=== PATIENT | female | born 1960 | race Caucasian/White ===

== ENCOUNTER 2024-08-25 10:00 | Day surgery (SDC) | payer BC ==
[2024-08-21 12:14] LABS: Basophils # (auto) 0.1 10 ^3/uL (0-0.2); Basophils % (auto) 0.8 % (0.0-2.0); Eosinophils # (auto) 0.2 10 ^3/uL (0-0.8); Eosinophils % (auto) 1.8 % (0.0-7.0); Hematocrit 47.4 % (36.0-46.0); Hemoglobin 15.5 g/dL (12.2-16.2); Lymphocytes # (auto) 1.6 10 ^3/uL (0.4-5.4); Lymphocytes % (auto) 15.7 % (10.0-50.0); Mean Corpuscular Hemoglobin 27.8 pg (28.0-32.0); Mean Corpuscular Hgb Conc. 32.6 g/dL (32.0-36.0); Mean Corpuscular Volume 85.3 fL (80.0-100.0); Monocytes # (auto) 0.9 10 ^3/uL (0-1.3); Monocytes % (auto) 8.8 % (0.0-12.0); Neutrophils # (auto) 7.2 10 ^3/uL (1.6-8.6); Neutrophils % (auto) 72.9 % (37.0-80.0); Platelet Count (auto) 293 10^3/uL (140-450); Red Blood Cells 5.56 10^6/uL (4.0-5.20); White Blood Cell 9.9 10^3/uL (4.4-10.8)
[2024-08-21 12:44] LABS: INR 0.95 (0.9-1.15); Partial Thromboplastin Time 28.2 SEC (24.5-34.5); Prothrombin Time 10.1 sec (9.3-11.8)
[2024-08-21 12:49] LABS: Alanine Aminotransferase 14 U/L (7-40); Alkaline Phosphatase 70 U/L (46-116); Anion Gap 8 (5-15); BUN/Creatinine Ratio 23.5 (10.0-20.0); Blood Urea Nitrogen 19 mg/dL (9-23); Carbon Dioxide 27 mmol/L (20-31); Chloride 105 mmol/L (98-107); Potassium 3.9 mmol/L (3.5-5.1); Sodium 140 mmol/L (136-145); Total Protein 7.3 g/dL (5.7-8.2)
[2024-08-21 12:50] LABS: Albumin 4.8 g/dL (3.2-4.8); Aspartate Aminotransferase 12 U/L (13-40); Bilirubin, Total 0.4 mg/dL (0.2-1.0); Calcium 10.9 mg/dL (8.7-10.4); Glucose 60 mg/dL (74-106)
[~2024-08-25] VITALS: Ht 170.2 cm; Wt 54.4 kg
[~2024-08-25 10:00] MED LIST: ANAS1TAB7 PO; CALC667C PO; CHOL400T19 PO
[2024-08-25] MEDS ORDERED: KETAMINE 50mg/ML 1ml syringe ONE (11:12)
[2024-08-25] MEDS ORDERED: SODIUM CHLORIDE LOCK 10 ML ONE (11:12)
[2024-08-25] MEDS ORDERED: LIDOCAINE 1% INJ PF 5ML AMP ONE (11:12)
[2024-08-25] MEDS ORDERED: fentaNYL CITRATE 100 MCG/2 ML VL ONE (11:12)
[2024-08-25] MEDS ORDERED: PROPOFOL 10 MG/ML 20 ML IV ONE (11:12)
[2024-08-25] MEDS ORDERED: MIDAZOLAM HCL 2MG/2ML 2ml VIAL (1mg/ml) ONE (11:12)
[2024-08-25] MEDS ORDERED: ONDANSETRON HCL 4 MG/2 ML VIAL ONE (11:12)
[2024-08-25 11:58] VITALS: PULSE 63; RESP 15; TEMP 99.2; O2SAT 100
--- NOTE | 2024-08-25 12:15 | DVHOP2 ---
Operative Report DATE OF OPERATION: 08/25/24 PROCEDURE: Colonoscopy with hot snare polypectomy. PREOPERATIVE INDICATION: The patient is a 64 -year-old female undergoing colonoscopy for colon cancer screening with Hemoccult-positive stools POSTOPERATIVE DIAGNOSES: 1. Patient had a 1-1.5 cm benign-appearing descending colon polyp that was seen and removed by hot snare polypectomy and the specimen was retrieved 2. Patient had a 2 mm benign-appearing cecal polyp that was seen and removed by cold biopsy forceps 3. There was a 2-3 mm benign-appearing ascending colon polyp that was seen and removed via cold biopsy forceps 4. There was a 2-3 mm benign-appearing splenic flexure polyp that was seen and removed via hot snare polypectomy 5. There was a 2 mm benign-appearing rectal polyp that was seen and removed via cold biopsy forceps 6. Trace internal hemorrhoids, mild sigmoid diverticular disease otherwise normal examination up to the cecum and terminal ileum PROCEDURE PERFORMED BY: Neema Zapata M.D. SCOPE: Olympus videocolonoscope. ASA CLASS: 3. PREOPERATIVE MEDICATIONS: Dr. Sina Yu PROCEDURE IN DETAIL: After obtaining an informed consent, the patient was placed on left lateral decubitus position. She was then sedated with the above medications. A rectal examination was performed that was normal. The colonoscope was then passed through the anus into the rectosigmoid and through the descending, transverse, and ascending colon up to the cecum with visualization of the appendiceal orifice, base of the cecum and the ileocecal valve. The colonoscope was then withdrawn. The distal 5 cm of the terminal ileum were nor mal In the base of the cecum there was a 2 mm polyp that was seen and removed by cold biopsy forceps In the ascending colon there was another 2-3 mm benign-appearing polyp that was seen and removed via cold biopsy forceps In the splenic flexure there was a 3 mm benign-appearing polyp that was seen and removed via hot snare polypectomy In the descending colon there was a 1-1.5 cm benign-appearing polyp that was seen and removed by hot snare polypectomy and the specimens were retrieved In the rectum there was a 1-2 mm benign-appearing polyp that was seen and removed by cold biopsy forceps Patient had mild sigmoid diverticular disease and on retroflexion 1+ internal hemorrhoids The patient tolerated the procedure well without difficulty. WITHDRAWAL TIME: 9 minutes QUALITY OF THE PREP: [place] Bowel Prep score: 9. COMPLICATIONS : None SPECIMENS: Descending colon polyp Cecal polyp Ascending colon polyp Splenic flexure polyp Rectal polyp DISPOSITION: Stable D/C to home PLAN: 1. Repeat colonoscopy base on biopsy result likely in 2-3 years 2. Resume GI soft diet advance as tolerated 3. Hold aspirin NSAIDs blood thinners for one week 4. Increase fluid and fiber intake 5. Outpatient follow up with me in 4-6 weeks to review results and discuss further management NEEMA ZAPATA MD Aug 25, 2024 12:15
[2024-08-25 12:25] VITALS: BP 126/57; PULSE 64; RESP 16; O2SAT 100
== END 2024-08-25 12:50 | disposition home or self-care (01) ==
LOC: GI 10:00
PROVIDERS: ATTEND Internal Medicine Gastroenterology
DX: R19.5 Other fecal abnormalities (principal); K57.30 Diverticulosis of large intestine without perforation or abscess without bleeding; D12.2 Benign neoplasm of ascending colon; D12.0 Benign neoplasm of cecum; D12.4 Benign neoplasm of descending colon; D12.3 Benign neoplasm of transverse colon; F17.200 Nicotine dependence, unspecified, uncomplicated; Z98.890 Other specified postprocedural states; K64.0 First degree hemorrhoids
CPT/HCPCS: 36415; 45380; 45385; 80053; 85025; 85610; 85730; 88305; J2250; J2405; J2704; J3010; J7030